=== PATIENT | female | born 1970 | race American Indian/Alaskan Native ===

== ENCOUNTER 2018-12-11 18:37 | Emergency (ER) | payer OTHER ==
[2018-12-11 19:00] VITALS: BP 125/84
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
[2018-12-11] MEDS ORDERED: IBUPROFEN PO ONE (19:26)
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
== END 2018-12-11 23:35 | disposition home or self-care (01) ==
LOC: ED 18:37
DX: S43.401A Unspecified sprain of right shoulder joint, initial encounter (principal); J45.909 Unspecified asthma, uncomplicated; Z79.899 Other long term (current) drug therapy; Z91.013 Allergy to seafood; Z98.51 Tubal ligation status; V87.7XXA Person injured in collision between other specified motor vehicles (traffic), initial encounter; Y93.89 Activity, other specified; Y92.488 Other paved roadways as the place of occurrence of the external cause; Y99.8 Other external cause status

== ENCOUNTER 2020-01-23 10:00 | Emergency (ER) | payer SELFPAY ==
[2020-01-23] MEDS ORDERED: predniSONE 20 MG TAB PO ONE (10:12)
[2020-01-23] MEDS ORDERED: KETOROLAC 60 MG/2 ML INJ IM ONE (10:12)
[2020-01-23 10:18] VITALS: BP 137/79
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
== END 2020-01-23 11:22 | disposition home or self-care (01) ==
LOC: ED 10:00
DX: S16.1XXA Strain of muscle, fascia and tendon at neck level, initial encounter (principal); J45.909 Unspecified asthma, uncomplicated; Z91.013 Allergy to seafood; Z79.899 Other long term (current) drug therapy; Z98.51 Tubal ligation status; Z98.890 Other specified postprocedural states; X50.9XXA Other and unspecified overexertion or strenuous movements or postures, initial encounter; Y93.89 Activity, other specified; Y92.89 Other specified places as the place of occurrence of the external cause; Y99.8 Other external cause status
CPT/HCPCS: 96372; 99282; J1885; J7512